=== PATIENT | female | born 1980 | race Caucasian/White ===

== ENCOUNTER 2019-10-15 14:27 | Outpatient (CLI) | payer OTHER, SELFPAY ==
--- NOTE | ~2019-10-15 | XR_ITS ---
EXAMINATION: XR lumbar spine 2-3V DATE: 10/15/2019 14:56 INDICATION: Low back pain TECHNIQUE: Anteroposterior and lateral views of the lumbar spine, and cone-down lateral view of the l umbosacral junction were obtained. COMPARISON: 04/30/2016 FINDINGS: There is no fracture, dislocation, or subluxation. The vertebral body heights, alignment, a nd intervertebral disc spaces are normal. The paravertebral soft tissues are unremarkable. Small dege nerative osteophytes project from the anterior endplates of multiple vertebral bodies. A 5 mm calcifi cation of the left mid abdomen likely reflects left nephrolithiasis. A phlebolith is noted in the lef t pelvis. IMPRESSION: 1. Mild lumbar spondylosis without acute findings. Reviewed, dictated and finalized at location A.
== END 2019-10-15 14:28 | disposition home or self-care (01) ==
LOC: ANHIMG 14:39
PROVIDERS: PCP Family Medicine; Visit Provider Family Medicine
DX: M54.9 Dorsalgia, unspecified (principal); M47.816 Spondylosis without myelopathy or radiculopathy, lumbar region
CPT/HCPCS: 72100

== ENCOUNTER → 2020-02-24 13:16 | Outpatient (CLI) | payer OTHER, SELFPAY ==
--- NOTE | ~2020-02-24 | XR_ITS ---
EXAMINATION: XR chest 2V DATE: 02/24/2020 13:59 INDICATION: Cough. TECHNIQUE: Frontal and lateral views of the chest were obtained. COMPARISON: Chest 2 views 03/15/2012 FINDINGS: The chest demonstrates clear lungs without pneumonia, pleural effusion, or pneumothorax. Th e heart size is normal. IMPRESSION: 1. No acute cardiopulmonary disease. Reviewed, dictated and finalized at location A.
== END ==
PROVIDERS: PCP Family Medicine; Visit Provider Family Medicine
DX: R05 Cough (principal); R50.9 Fever, unspecified
CPT/HCPCS: 71046

== ENCOUNTER 2020-05-07 13:12 | Emergency (ER) | payer OTHER, SELFPAY ==
--- NOTE | ~2020-05-07 | XR_ITS ---
EXAMINATION: XR chest 1V portable EXAM DATE: 05/07/2020 14:19 INDICATION: Dyspnea. TECHNIQUE: Portable AP frontal chest x-ray was obtained. Comparison is made to prior examination from 02/24/2020. FINDINGS: The lungs are clear. There are no pleural effusions. Cardiac silhouette is prominent but magnified on this AP technique. There is no pneumothorax suspected. The bones and soft tissues are unremarkable. IMPRESSION: No acute cardiopulmonary findings. Reviewed, dictated and finalized at location A. WORKER
[2020-05-07 13:39] VITALS: BP 123/76; PULSE 59; RESP 18; TEMP 36.8; O2SAT 96
[2020-05-07 14:08] LABS: Basophils Percent Auto 0.1 % (0.2-1.2); Eosinophils Absolute Auto 0.2 K/mm3 (0-0.3); Eosinophils Percent Auto 2.8 % (0-4.4); Hemoglobin 14.7 g/dL (12.0-15.0); Immature Granulocyte Absolute 0.02 K/mm3 (0.00-0.031); Immature Granulocyte Percent A 0.3 % (0-0.5); Lymphocytes Absolute Auto 2.47 K/mm3 (0.9-3.2); Lymphocytes Percent Auto 34.5 % (18.3-44.2); Mean Corpuscular HGB Conc 33.4 g/dl (32-36); Mean Corpuscular Hemoglobin 31.2 pg (26-34); Mean Corpuscular Volume 93.4 fl (80-100); Mean Platelet Volume 10.1 fl (7.4-10.4); Monocytes Absolute Auto 0.5 K/mm3 (0.1-0.6); Monocytes Percent Auto 6.7 % (2.6-8.5); Neutrophils Percent Auto 55.6 % (45.5-73.1); Platelet Count Result 202 k/mm3 (150-375); Red Blood Count 4.71 M/mm3 (4.2-5.4); Red Cell Distribution Width 12.3 % (11.5-14.5); White Blood Count 7.2 K/mm3 (4.5-10.0)
[2020-05-07 14:27] LABS: Alanine Aminotransferase 22 U/L (4-35); Albumin Level 4.2 g/dL (3.5-5.1); Alkaline Phosphatase 59 U/L (38-126); Anion Gap 7 mmol/L (8-16); Aspartate Amino Transferase 31 U/L (14-36); Bilirubin,Total 0.5 mg/dL (0.2-1.3); Blood Urea Nitrogen 8 mg/dL (7-17); Carbon Dioxide 27 mmol/L (22-30); Chloride 105 mmol/L (98-107); Estimated CRCL calculation 143 ml/min; Estimated Glomerular Filt Rate > 60; Glucose 92 mg/dL (65-105); Potassium 4.5 mmol/L (3.4-5.0); Sodium 139 mmol/L (137-145)
--- NOTE | 2020-05-07 14:37 | ED.SOB ---
HPI - SOB/Dyspnea General Chief Complaint: Shortness of Breath/Dyspnea Stated Complaint: covid positive Time Seen by Provider: 05/07/20 13:38 History of Present Illness HPI Narrative: Patient is a 39-year-old female who presents to emergency department with chief complaint of cough and shortness of breath. Patient reports she was recently diagnosed with COVID-19 reports that she has been coughing and has been more shortness of breath. Patient states that she was concerned that she may be developing pneumonia and has checked a pulse ox at home and said that her blood oxygen levels have been in the 90. Patient denies fever states that she does have generalized body aches and reports that she has multiple family members with COVID-19 at home. Related Data Allergies Allergy/AdvReac Type Severity Reaction Status Date / Time No Known Allergies Allergy Verified 02/21/20 14:28 Review of Systems Review of Systems: Narrative: CONSTITUTIONAL: Denies fever, chills, or sweats. EYES: Denies visual changes, redness, or discharge. ENT: Denies rhinorrhea, congestion, sore throat, or otalgia. CARDIOVASCULAR: Denies chest pain, palpitations, or edema. RESPIRATORY: Denies cough or dyspnea. GASTROINTESTINAL: Denies abdominal pain, nausea, vomiting, or diarrhea. GENITOURINARY: Denies dysuria or hematuria. SKIN: Denies rash or itching. MUSCULOSKELETAL: Denies back pain, joint pain, or myalgia. NEUROLOGIC: Denies headache, numbness, or weakness. PSYCHIATRIC: Denies anxiety or depression. [facility] Past Medical History Medical History (Updated 05/07/20 @ 14:41 by Eduar Schwartz MD) Depression HLD (hyperlipidemia) Normal colonoscopy (~2008) Surgical History Surgical History H/O foot surgery (~2016) right H/O: hysterectomy (~2010) Family History Family History Grandparent Family history of dementia Grandparent Breast cancer Other Breast cancer Grandparent Carcinoma of colon Social History Social History Smoking status: Never smoker Second hand tobacco smoke exposure: No Alcohol intake: current Exam Narrative: Exam Narrative: GENERAL: Well-appearing, well-nourished, and in no acute distress. HEAD: Normocephalic, atraumatic. EYES: PERRLA and EOMI. ENT: Nares clear, no rhinorrhea or epistaxis. Mucous membranes moist. NECK: Supple. CHEST: Clear to auscultation. No respiratory distress. HEART: Regular rate and rhythm. No murmur heard. Normal peripheral pulses. ABDOMEN: Soft, nontender, nondistended, normal active bowel sounds. EXTREMITIES: Normal range of motion. No edema. SKIN: Warm, dry, no rash. NEURO: No focal deficits. Alert and oriented x3. PSYCH: Normal mood and affect. Course Course Emergency Course: Patient's chest x-ray shows no evidence of infiltrate patient is not hypoxic or showing signs that would require emergent hospitalization. Vital Signs Vital signs: Vital Signs Temperature 36.8 C 05/07/20 13:39 Pulse Rate 59 L 05/07/20 13:39 Respiratory Rate 18 05/07/20 13:39 Blood Pressure 123/76 05/07/20 13:39 Pulse Oximetry 96 05/07/20 13:39 Temperature 36.8 C 05/07/20 13:39 Pulse Rate 59 L 05/07/20 13:39 Respiratory Rate 18 05/07/20 13:39 Blood Pressure 123/76 05/07/20 13:39 Pulse Oximetry 96 05/07/20 13:39 MDM - SOB/Dyspnea Lab Data Result diagrams: 05/07/20 13:51 05/07/20 13:51 Labs: Lab Results 05/07/20 05/07/20 Range/Units 13:51 13:51 WBC 7.2 (4.5-10.0) K/mm3 RBC 4.71 (4.2-5.4) M/mm3 Hgb 14.7 (12.0-15.0) g/dL Hct 44.0 (37.0-47.0) % MCV 93.4 (80-100) fl MCH 31.2 (26-34) pg MCHC 33.4 (32-36) g/dl RDW 12.3 (11.5-14.5) % Plt Count 202 (150-375) k/mm3 MPV 10.1 (7.4-10.4) fl Immature Gran %
[2020-05-07 14:55] VITALS: BP 122/68; PULSE 60; RESP 18; O2SAT 96
== END 2020-05-07 14:56 | disposition home or self-care (01) ==
PROVIDERS: Emergency Provider Emergency Medicine; PCP Family Medicine
DX: U07.1 COVID-19 (principal); F32.9 Major depressive disorder, single episode, unspecified; E78.5 Hyperlipidemia, unspecified
CPT/HCPCS: 36415; 71045; 80053; 85025; 99283

== ENCOUNTER 2021-06-24 16:56 | Emergency (ER) | payer MEDICAID, SELFPAY ==
[2021-06-24 18:00] VITALS: BP 120/76; PULSE 84; RESP 18; TEMP 36.8; O2SAT 97
--- NOTE | 2021-06-24 19:18 | ED.URI ---
HPI - URI/Sore Throat General Chief Complaint: Upper Respiratory Infection Stated Complaint: back pain fall,flu symptoms Time Seen by Provider: 06/24/21 19:20 Source: patient and RN notes reviewed Mode of arrival: ambulatory Limitations: no limitations History of Present Illness HPI Narrative: 41-year-old female presents with concern for nasal congestion, rhinorrhea, fatigue, headache, body aches, cough that started yesterday. Reports she took a Covid test at work yesterday which was negative. 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 She reports today she felt slightly woozy and fell causing low back pain. She denies any direct trauma to the back denies any abdominal pain, lower extremity weakness. She reports she is taken ibuprofen. MD elicited complaint: cough and sore throat Related Data Allergies Allergy/AdvReac Type Severity Reaction Status Date / Time No Known Allergies Allergy Verified 06/24/21 18:32 Review of Systems Review of Systems: CONSTITUTIONAL: Reports malaise, chills. Denies sweats, or fever. EYES: Denies visual changes, redness, or discharge. ENT: Reports rhinorrhea, congestion. Denies sinus pain, otalgia and sore throat. CARDIOVASCULAR: Denies chest pain, palpitations, or edema. RESPIRATORY: Reports cough. Denies dyspnea. GASTROINTESTINAL: Denies abdominal pain, nausea, vomiting, diarrhea SKIN: Denies rash or itching. MUSCULOSKELETAL: Reports bilateral lower back pain and myalgia. NEUROLOGIC: Denies headache. All systems reviewed & are unremarkable except as noted in HPI and below PMFSH Past Medical History Medical History (Updated 06/24/21 @ 19:58 by Sary Acosta NP) Depression HLD (hyperlipidemia) Normal colonoscopy (~2008) Surgical History Surgical History H/O foot surgery (~2016) right H/O: hysterectomy (~2010) Family History Family History Grandparent Family history of dementia Grandparent Breast cancer Other Breast cancer Grandparent Carcinoma of colon Social History Social History Smoking status: Never smoker Second hand tobacco smoke exposure: No Alcohol intake: current Comments At time of signature, agree with nursing past medical, surgical, social and family history. There is no relevant family history pertinent to the presenting complaint Exam Narrative: GENERAL: Well-appearing, well-nourished, and in no acute distress. HEAD: Normocephalic EYES: PERRLA, conjunctivae clear, bilateral sclera injected ENT: Nares clear, clear discharge. Mucous membranes moist. TM pearly dobson with dull light reflex bilaterally; no tragal tenderness. Oropharynx not erythematous without lesions. Tonsils not enlarged and without exudate, no drooling, no hoarseness, no trismus, uvula midline. NECK: Supple. No lymphadenopathy CHEST: Clear to auscultation, breath sounds equal. No wheezing, rhonchi, rales, or stridor. No respiratory distress, speaks in full sentences. HEART: Regular rate and rhythm. No murmur heard. SKIN: Warm, dry, no rash. NEURO: Alert and oriented x3. No mid spine tenderness, equal strength and all extremities PSYCH: Normal mood and affect Course Course Emergency Course: Patient is aware of diagnosis, understands and agrees to treatment plan. Anticipatory guidance given. Patient agrees to follow-up as directed and is aware of reasons to seek care at the emergency department. Portions of this record may have been created with voice recognition software Vital Signs Vital signs: Vital Signs Temperature 98.3 F 06/24/21 18:00 Pulse Rate 84 06/24/21 18:00 Respiratory Rate 18 06/24/21 18:00 Blood Pressure 120/76 06/24/21 18:00 Pulse Oximetry 97 06/24/21 18:00 Temperature 98.3 F 06/24/21 18:00 Pulse Rate 84 06/24/21 18:00 Respiratory Rate 18
== END 2021-06-24 20:04 | disposition home or self-care (01) ==
PROVIDERS: Emergency Provider Nurse Practitioner
DX: B34.9 Viral infection, unspecified (principal); Z20.822 Contact with and (suspected) exposure to COVID-19; F32.A Depression, unspecified; E78.5 Hyperlipidemia, unspecified
CPT/HCPCS: 87426; 87804; 99213; C9803; G0463

== ENCOUNTER 2022-10-06 14:56 | Emergency (ER) | payer OTHER, SELFPAY ==
[2022-10-06 15:10] VITALS: BP 119/76; PULSE 63; RESP 18; TEMP 36.7; O2SAT 100
--- NOTE | 2022-10-06 15:25 | ED.DENTAL ---
HPI - Dental/Oral General Chief complaint: Dental/Oral Stated complaint: Rt Mouth Pain Time Seen by Provider: 10/06/22 15:15 Source: patient Mode of arrival: ambulatory Limitations: no limitations History of Present Illness HPI Narrative: 42-year-old female presents with complaint of right-sided lower dental pain for the past 2-3 days. Call her dentist for appointment but he is out sick with the flu. States that the statistical secretary told her that she needs to start an antibiotic prior to seeing the dentist. Patient states that right side her face is swollen. No obvious swelling noted. Afebrile. All systems reviewed and negative except as noted above. Related Data Allergies Allergy/AdvReac Type Severity Reaction Status Date / Time No Known Allergies Allergy Verified 10/06/22 15:13 Review of Systems Review of Systems: CONSTITUTIONAL: Denies fever, chills, or sweats. EYES: Denies visual changes, redness, or discharge. ENT: Denies rhinorrhea, congestion, sore throat, or otalgia. Reports right-sided lower dental pain. CARDIOVASCULAR: Denies chest pain, palpitations, or edema. RESPIRATORY: Denies cough or dyspnea. GASTROINTESTINAL: Denies abdominal pain, nausea, vomiting, or diarrhea. GENITOURINARY: Denies dysuria or hematuria. SKIN: Denies rash or itching. MUSCULOSKELETAL: Denies back pain, joint pain, or myalgia. NEUROLOGIC: Denies headache, numbness, or weakness. PSYCHIATRIC: Denies anxiety or depression. All other systems reviewed are negative, except as documented in HPI. [facility] Past Medical History Medical History (Updated 10/06/22 @ 15:24 by Rosemarie Valdivia NP) Depression HLD (hyperlipidemia) Normal colonoscopy (~2008) Surgical History Surgical History H/O foot surgery (~2016) right H/O: hysterectomy (~2010) Family History Family History Grandparent Family history of dementia Grandparent Breast cancer Other Breast cancer Grandparent Carcinoma of colon Social History Social History Smoking status: Never smoker Second hand tobacco smoke exposure: No Alcohol intake: current Comments At time of signature, agree with nursing past medical, surgical, social and family history. There is no relevant family history pertinent to the presenting complaint. Exam Narrative: GENERAL: This is a well-nourished, well-developed patient, in no apparent distress. HEAD: normocephalic, atraumatic. EYES: PERRL. Sclera clear/white. Vision is grossly intact. EARS: External ears normal NOSE: External nose normal MOUTH: NO DENTAL ABNORMALITY NOTED. NECK: Neck supple, non-tender without lymphadenopathy, masses or thyromegaly. CARDIOVASCULAR: Regular rate and rhythm without murmurs, gallops, or rubs. RESPIRATORY: Clear to auscultation. Breath sounds equal bilaterally. No wheezes, rales, or rhonchi. SKIN: warm, Dry, intact with no suspicious lesions or rash, good texture and turgor. NEURO: awake, alert, and oriented to person, place and time. There were no obvious focal neurologic abnormalities. EXTREMITIES: No joint tenderness, effusion, or edema noted. Course Course Level of Care: Express Care Visit Vital Signs Vital signs: Vital Signs Temperature 36.7 C 10/06/22 15:10 Pulse Rate 63 10/06/22 15:10 Respiratory Rate 18 10/06/22 15:10 Blood Pressure 119/76 10/06/22 15:10 Pulse Oximetry 100 10/06/22 15:10 Oxygen Delivery Room Air 10/06/22 15:10 Temperature 36.7 C 10/06/22 15:10 Pulse Rate 63 10/06/22 15:10 Respiratory Rate 18 10/06/22 15:10 Blood Pressure 119/76 10/06/22 15:10 Pulse Oximetry 100 10/06/22 15:10 Oxygen Delivery Room Air 10/06/22 15:10 Reviewed MDM - Dental/Oral MDM Narrative Medical decision making narrative: Patient is aware of diagno
== END 2022-10-06 15:25 | disposition home or self-care (01) ==
PROVIDERS: Emergency Provider Nurse Practitioner Family
DX: K08.89 Other specified disorders of teeth and supporting structures (principal); E78.5 Hyperlipidemia, unspecified; F32.9 Major depressive disorder, single episode, unspecified; F32.A Depression, unspecified
CPT/HCPCS: 99213; G0463

== ENCOUNTER 2023-03-01 13:51 | Emergency (ER) | payer OTHER, BC, SELFPAY ==
[2023-03-01 14:08] VITALS: BP 127/74; PULSE 71; RESP 16; TEMP 36.6; O2SAT 98
--- NOTE | 2023-03-01 16:13 | ED.BACK ---
HPI - Back Pain/Injury General Chief Complaint: Back Pain/Injury Stated Complaint: back pain Time Seen by Provider: 03/01/23 14:27 Source: patient and RN notes reviewed Mode of arrival: ambulatory Limitations: no limitations History of Present Illness HPI Narrative: Patient presents today complaining of 3 day history of low back pain with radiation to the bilateral buttocks. Patient states her back, ?went out. Denies any known injury or trauma. She has not been doing any heavy lifting. Denies numbness or tingling in the legs, feet, or genitalia. Denies loss of bowel or bladder control. States her symptoms had been improving until last night when she felt a pop in her back when she moved in bed. She currently rates her pain 8/10, which increases with movement. She has been taking Tylenol and ibuprofen without relief. She has also been using ice and heat. Denies any chronic back issues or history of back surgeries. Related Data Allergies Allergy/AdvReac Type Severity Reaction Status Date / Time No Known Allergies Allergy Verified 10/06/22 15:13 Review of Systems Review of Systems: CONSTITUTIONAL: Denies body aches, fever, chills, or sweats. EYES: Denies visual changes, redness, or discharge. ENT: Denies rhinorrhea, congestion, sore throat, or otalgia. CARDIOVASCULAR: Denies chest pain, palpitations, or edema. RESPIRATORY: Denies cough or dyspnea. GASTROINTESTINAL: Denies abdominal pain, nausea, vomiting, or diarrhea. GENITOURINARY: Denies dysuria or hematuria. SKIN: Denies rash, itching, or wounds. MUSCULOSKELETAL: Denies joint pain, or myalgia.+ bilateral back pain NEUROLOGIC: Denies headache, numbness, tingling, or weakness. PSYCH: Denies depression or anxiety. [facility] Past Medical History Medical History Depression HLD (hyperlipidemia) Normal colonoscopy (~2008) Surgical History Surgical History H/O foot surgery (~2016) right H/O: hysterectomy (~2010) Family History Family History Grandparent Family history of dementia Grandparent Breast cancer Other Breast cancer Grandparent Carcinoma of colon Social History Social History Smoking status: Never smoker Second hand tobacco smoke exposure: No Alcohol intake: current Comments At time of signature, I have reviewed and agree with nursing past medical, surgical, social and family history unless otherwise noted. Please see nursing chart for further information. There is no relevant family history pertinent to the presenting complaint Exam Narrative: GENERAL: Well-appearing, well-nourished, and in no acute distress. HEAD: Normocephalic, atraumatic. EYES: EOMI. No redness or drainage. Conjunctivae normal. ENT: Mucous membranes pink and moist. NECK: Normal AROM. CHEST: No respiratory distress. MUSCULOSKELETAL: No bony tenderness of the spine. Mild tenderness of the left lower lumbar paraspinal muscles. Mild tenderness of the right SI joint. Distal sensation intact. Saddle sensation intact. Capillary refill normal. Pedal pulses normal. Dorsiflexion and plantar flexion equal and strong against resistance. Normal bilateral patellar reflexes. EXTREMITIES: Normal range of motion. No edema. SKIN: Warm, dry, no rash. Capillary refill normal. Normal skin turgor. NEURO: No focal deficits. Alert and oriented x3. Gait steady. PSYCH: Normal affect. No signs of depression or anxiety. Course Course Level of Care: Express Care Visit Vital Signs Vital signs: Vital Signs Temperature 97.8 F 03/01/23 14:08 Pulse Rate 71 03/01/23 14:08 Respiratory Rate 16 03/01/23 14:08 Blood Pressure 127/74 03/01/23 14:08 Pulse Oximetry 98 03/01/23 14:08 Oxygen Delivery Room Air
== END 2023-03-01 14:30 | disposition home or self-care (01) ==
PROVIDERS: Emergency Provider Nurse Practitioner; PCP Nurse Practitioner Family
DX: M54.42 Lumbago with sciatica, left side (principal); M54.41 Lumbago with sciatica, right side; E11.9 Type 2 diabetes mellitus without complications; E78.5 Hyperlipidemia, unspecified
CPT/HCPCS: 99213; G0463

== ENCOUNTER 2025-06-08 15:32 | Emergency (ER) | payer OTHER, SELFPAY ==
[2025-06-08 15:40] VITALS: BP 127/74; PULSE 75; RESP 20; TEMP 36.5; O2SAT 99
--- NOTE | 2025-06-08 16:00 | ED_ITS ---
HPI - URI/Sore Throat General Chief Complaint: Upper Respiratory Infection Stated Complaint: fever/cough Time Seen by Provider: 06/08/25 15:45 Source: patient and RN notes reviewed Mode of arrival: ambulatory Limitations: no limitations History of Present Illness HPI Narrative: 44-year-old female patient presents today with a 2 week history of productive cough, nasal congestion, intermittent shortness of breath. Reports a temperature of 100? today. She was seen by her PCP at onset of symptoms, diagnosed with a viral URI and prescribed Tessalon Perles and Flonase, which she states has not improved her symptoms. She has also tried DayQuil and NyQuil with some improvement as well as Mucinex. No history of asthma or COPD. She vapes. Related Data Home Medications ?Medication ?Instructions ?Recorded ?Confirmed ?Last Taken ?Type benzonatate 100 mg capsule mg PO 06/08/25 Unknown His tory fluticasone propionate 50 intranasal 06/08/25 Unknown History mcg/actuation nasal spray,suspension semaglutide (weight loss) subcut 06/08/25 Unknown His tory Allergies Allergy/AdvReac Type Severity Reaction Status Date / Time No Known Allergies Allergy Verified 06/08/25 15:43 [facility] Past Medical History Medical History (Updated 06/08/25 @ 16:04 by Rae Chiu APRN, NANCY) Normal colonoscopy (~2008) Depression HLD (hyperlipidemia) Surgical History Surgical History H/O foot surgery (~2016) right H/O: hysterectomy (~2010) Family History Family History Grandparent Family history of dementia Grandparent Breast cancer Other Breast cancer Grandparent Carcinoma of colon Social History Social History Smoking status: Never smoker Second hand tobacco smoke exposure: No Alcohol intake: current Comments At time of signature, I have reviewed and agree with nursing past medical, surgical, social and family history unless otherwise noted. Please see nursing chart for further information. There is no relevant family history pertinent to the presenting complaint Exam Narrative: GENERAL: Mildly ill appearing, well-nourished, and in no acute distress. HEAD: Normocephalic, atraumatic. EYES: EOMI. No redness or drainage. Conjunctivae normal. ENT: Mucous membranes pink and moist. Nares congested. No rhinorrhea. TMs normal bilaterally. Throat normal. Uvula midline. NECK: Normal AROM. Supple. No lymphadenopathy. CHEST: No respiratory distress. Crackle in the right lower lobe. HEART: Regular rate and rhythm. No murmur appreciated. EXTREMITIES: Normal range of motion. No edema. SKIN: Warm, dry, no rash. Capillary refill normal. Normal skin turgor. NEURO: No focal deficits. Alert and oriented x3. Gait steady. PSYCH: Normal affect. No signs of depression or anxiety. Course Course Level of Care: Express Care Visit Vital Signs Vital signs: Vital Signs Temperature 97.7 F 06/08/25 15:40 Pulse Rate 75 06/08/25 15:40 Respiratory Rate 20 06/08/25 15:40 Blood Pressure 127/74 06/08/25 15:40 Pulse Oximetry 99 06/08/25 15:40 Oxygen Delivery Room Air 06/08/25 15:40 Temperature 97.7 F 06/08/25 15:40 Pulse Rate 75 06/08/25 15:40 Respiratory Rate 20 06/08/25 15:40 Blood Pressure 127/74 06/08/25 15:40 Pulse Oximetry 99 06/08/25 15:40 Oxygen Delivery Room Air 06/08/25 15:40 Reviewed MDM MDM Narrative Medical decision making narrative: 44-year-old female patient presents today with a 2 week history of productive cough, nasal congestion, intermittent shortness of breath. Reports a temperature of 100? today. She was seen by her PCP at onset of symptoms, diagnosed with a viral URI and prescribed Tessalon Perles and Flonase, which she states has not improved her symptoms. She has also tried DayQuil and NyQuil with some improvement as well as Mucinex. No history of asthma or COPD. She vapes. Upon exam, patient is mildly ill appearing with nasal congestion and crackle in the right lower lobe. She will be treated with Augmentin for sinusitis as well as prednisone for bronchitis. Patient agrees with plan. Vital signs stable. Anticipatory guidance given. Differential Diagnosis Differential Diagnosis: URI, sinusitis, pneumonia, bronchitis Critical Care Time Critical Care Time Critical Care Time: No Discharge Plan Discharge Clinical Impression: Bronchitis Sinusitis Qualifiers: Sinusitis location: unspecified location Chronicity: acute Recurrence: non- recurrent Qualified Code(s): J01.90 - Acute sinusitis, unspecified Patient Disposition: Home Condition: Stable Instructions: Antibiotic Form, Sinusitis (ED), Acute Bronchitis (ED) Additional Instructions: Please take the Augmentin and prednisone as directed. You may continue [id number] medication as needed for symptoms. Follow-up with your PCP in 3 days if symptoms are not improving. Patient Language: Arabic Prescriptions: New prednisone 50 mg tablet 50 mg PO DAILY 5 Days Qty: 5 0RF amoxicillin-pot clavulanate 875-125 mg tablet 1 tablet PO Q12H 7 Days Qty: 14 0RF No Action benzonatate 100 mg capsule PO fluticasone propionate 50 mcg/actuation spray,suspension INTRANASAL semaglutide (weight loss) subcut escitalopram oxalate 20 mg tablet See Rx Instructions .ROUTE .COMPLEX Qty: 30 3RF Dose Instruction: TAKE 1 TABLET BY MOUTH DAILY Rx Instructions: TAKE 1 TABLET BY MOUTH DAILY Follow-up/Referrals: Arley,Mariia Santiago [Primary Care Provider, Unknown] Time of Disposition: 16:04
== END 2025-06-08 16:08 | disposition home or self-care (01) ==
PROVIDERS: Emergency Provider Nurse Practitioner; PCP Nurse Practitioner
DX: J40 Bronchitis, not specified as acute or chronic (principal); J01.90 Acute sinusitis, unspecified; F17.290 Nicotine dependence, other tobacco product, uncomplicated; E78.5 Hyperlipidemia, unspecified; F32.A Depression, unspecified
CPT/HCPCS: 99213; G0463